=== PATIENT | male | born 1965 | race Caucasian/White ===

== ENCOUNTER 2017-04-09 12:40 | Outpatient (CLI) | payer OTHER ==
[2017-04-09 19:28] LABS: EOSINOPHILS # (AUTO) 0.2 10^3/uL (0.0-0.7); HGB - HEMOGLOBIN 14.5 g/dL (14.0-18.0); LYMPHOCYTES # (AUTO) 1.4 10^3/uL (1.5-3.5); MEAN PLATELET VOLUME 8.7 fL (7.4-11.4); MONOCYTES # (AUTO) 0.4 10^3/uL (0.0-1.0); NEUTROPHILS # (AUTO) 1.9 10^3/uL (1.5-6.6); NUCLEATED RED BLOOD CELLS AUTO 0.1 /100WBC
[2017-04-09 19:31] LABS: EOSINOPHILS % (AUTO) 5.7 %; HCT - HEMATOCRIT 44.1 % (42.0-52.0); LYMPHOCYTES % (AUTO) 35.4 %; MEAN CORPUSCULAR HEMOGLOBIN 30.1 pg (27.0-31.0); MEAN CORPUSCULAR HGB CONC 32.9 g/dL (32.0-36.0); MEAN CORPUSCULAR VOLUME 91.3 fL (80.0-94.0); MONOCYTES % (AUTO) 10.3 %; NEUTROPHILS % (AUTO) 47.6 %; RED BLOOD COUNT 4.83 10^6/uL (4.70-6.10); RED CELL DISTRIBUTION WIDTH 14.1 % (12.0-15.0); UNCORRECTED WHITE BLOOD COUNT 3.9 x10^3/uL; WHITE BLOOD COUNT 3.9 x10^3/uL (4.8-10.8)
[2017-04-09 19:37] LABS: ALBUMIN/GLOBULIN RATIO 1.3 (1.0-2.2); BILIRUBIN,TOTAL 0.5 mg/dL (0.2-1.0); BUN - BLOOD UREA NITROGEN 18 mg/dL (6-20); CALCIUM 9.1 mg/dL (8.5-10.3); CARBON DIOXIDE - CO2 30 mmol/L (21-32); CHLORIDE 104 mmol/L (101-111); GFR - MDRD 78 (>89); GLUCOSE 88 mg/dL (70-100); POTASSIUM 4.3 mmol/L (3.5-5.0); SODIUM 140 mmol/L (135-145); TOTAL PROTEIN 7.5 g/dL (6.7-8.2)
== END 2017-04-09 12:41 | disposition home or self-care (01) ==
LOC: LAB.WCP 12:40
PROVIDERS: ATTEND Family Medicine
DX: R59.1 Generalized enlarged lymph nodes (principal); R07.89 Other chest pain
CPT/HCPCS: 36415; 80053; 84484; 85025; 86140; 87389

== ENCOUNTER 2018-03-26 14:28 | Outpatient (CLI) | payer OTHER ==
[2018-03-26 19:14] LABS: BASOPHILS % (AUTO) 0.9 %; EOSINOPHILS # (AUTO) 0.2 10^3/uL (0.0-0.7); EOSINOPHILS % (AUTO) 4.7 %; HGB - HEMOGLOBIN 14.8 g/dL (14.0-18.0); LYMPHOCYTES # (AUTO) 1.7 10^3/uL (1.5-3.5); LYMPHOCYTES % (AUTO) 35.1 %; MEAN CORPUSCULAR HGB CONC 33.2 g/dL (32.0-36.0); MEAN CORPUSCULAR VOLUME 93.3 fL (80.0-94.0); MEAN PLATELET VOLUME 8.8 fL (7.4-11.4); MONOCYTES # (AUTO) 0.5 10^3/uL (0.0-1.0); MONOCYTES % (AUTO) 11.2 %; NEUTROPHILS # (AUTO) 2.3 10^3/uL (1.5-6.6); NEUTROPHILS % (AUTO) 48.1 %; PLT - PLATELET COUNT 198 10^3/uL (130-450); RED BLOOD COUNT 4.76 10^6/uL (4.70-6.10); RED CELL DISTRIBUTION WIDTH 13.5 % (12.0-15.0); WHITE BLOOD COUNT 4.9 x10^3/uL (4.8-10.8)
[2018-03-26 19:30] LABS: ALBUMIN 3.8 g/dL (3.2-5.5); ALBUMIN/GLOBULIN RATIO 1.2 (1.0-2.2); ALKALINE PHOSPHATASE 49 IU/L (42-121); ALT ALANINE AMINOTRANSFERASE 20 IU/L (10-60); AST ASPARTATE AMINOTRANSFERASE 21 IU/L (10-42); BILIRUBIN,TOTAL 0.7 mg/dL (0.2-1.0); BUN - BLOOD UREA NITROGEN 17 mg/dL (6-20); CALCIUM 8.8 mg/dL (8.5-10.3); CARBON DIOXIDE - CO2 26 mmol/L (21-32); CHLORIDE 102 mmol/L (101-111); CREATININE 0.9 mg/dL (0.6-1.2); GFR - MDRD 88 (>89); GLUCOSE 79 mg/dL (70-100); SODIUM 136 mmol/L (135-145)
[2018-03-26 19:31] LABS: CRP - C-REACTIVE PROTEIN < 1.0 mg/dL (0-1.0)
== END 2018-03-26 14:29 | disposition home or self-care (01) ==
LOC: LAB.WCP 14:28
PROVIDERS: ATTEND Family Medicine
DX: R51 Headache (principal)
CPT/HCPCS: 36415; 80053; 85025; 85651; 86140

== ENCOUNTER 2018-04-02 15:05 | Outpatient (CLI) | payer OTHER ==
--- NOTE | 2018-04-03 15:03 | MRI Report ---
Procedure Date: 04/02/2018 Accession Number: [id number] / [id number] Procedure: MRI - Brain W/O CPT Code: FULL RESULT: EXAM: MRI BRAIN WITHOUT CONTRAST EXAM DATE: 04/02/2018 03:55 PM. CLINICAL HISTORY: Headache for several weeks. Patient's father of brain cancer. Head injury in 2012 with orbital and posterior fossa fracture. COMPARISON: CT scan of the head 04/04/2013. TECHNIQUE: Multiplanar, multisequence T1-weighted and fluid-sensitive MR sequences of the brain were performed. Sequences optimized for routine evaluation. Other: None. IV Contrast: None. FINDINGS: Brain Volume: Normal for age. Parenchyma/Dura: No mass, acute infarct or hemorrhage. Normal valadez matter and white matter signal intensity is identified. Ventricles/Cisterns: The ventricles, sulci, and cisterns are unremarkable. Mild arcuate prominence of CSF is seen posterior to the cerebellar vermis and hemispheres. This may be secondary to magna cisterna magna versus arachnoid cyst. No underlying parenchymal abnormality is seen. Orbits: Symmetric and unremarkable. Sella Turcica: The pituitary gland, cavernous sinuses, suprasellar cistern and optic chiasm are unremarkable. IAC: Symmetric and unremarkable. Vasculature: Normal signal flow void is seen in the major arterial structures at the skull base. Sinuses: Mild mucosal thickening is seen posteriorly superiorly in the ethmoid sinuses and adjacent anterior sphenoid sinuses. Minimal mucosal thickening is seen inferiorly in the maxillary antra. The mastoid air cells are clear. Bones: No focal pathologic appearing marrow signal changes. Other: None. IMPRESSION: 1. Negative noncontrast MRI of the brain. No acute abnormality. No infarct, mass, or hemorrhage. RADIA
== END 2018-04-02 15:06 | disposition home or self-care (01) ==
LOC: DI 15:05
PROVIDERS: ATTEND Family Medicine
DX: R51 Headache (principal); Z80.8 Family history of malignant neoplasm of other organs or systems
CPT/HCPCS: 70551

== ENCOUNTER 2021-11-11 19:00 | Emergency (ER) | payer OTHER ==
[2021-11-11 19:22] VITALS: BP 134/66
[2021-11-11] MEDS: PROPARACAINE 0.5% OPHTH DROPS 15 ML EACHEYE STA (19:31)
--- NOTE | 2021-11-11 19:43 | ED Physician Documentation ---
PD HPI OPHTHO - Stated complaint Stated Complaint: RT EYE PAIN - Chief complaint Chief Complaint: Heent - History obtained from History obtained from: Patient - History of Present Illness Pain level max: 3 Pain level now: 2 Location: Right Quality / character: Aching Associated symptoms: Redness, Tearing, FB sensation. No: Photophobia, Double vision, Decreased vision, Loss of vision, Headache Contributing factors: No: Wears glasses, Wears contacts Similar symptoms before: Has not had sx before - Additional information Additional information: Patient is a 55-year-old male who complains of right eye pain. 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 No vision changes. Does have tearing. Nothing makes it better. Nothing makes it worse. Review of Systems Constitutional: denies: Fever GI: denies: Vomiting PD PAST MEDICAL HISTORY - Past Medical History Cardiovascular: None Respiratory: Asthma Endocrine/Autoimmune: None GI: None : None HEENT: None Psych: None Musculoskeletal: None Derm: Eczema - Past Surgical History Past Surgical History: No General: Colonoscopy - Present Medications Home Medications: Ambulatory Orders Medication Instructions Recorded Confirmed Albuterol Sulfate [Proventil Hfa 2 puffs INH Q6HR PRN 04/01/05/15/20 Inhaler] diphenhydrAMINE [Benadryl] 12.5 mg ORAL Q6HR PRN 05/15/20 05/15/20 Polymyxin B/Trimeth Ophth Drop 1 drops EACHEYE Q3H 7 Days #1 11/11/21 [Polytrim Ophth Drops] bottle - Allergies Allergies/Adverse Reactions: Allergies Allergy/AdvReac Type Severity Reaction Status Date / Time codeine Allergy Rash Verified 02/01/15 21:22 Penicillins Allergy Unknown Verified 11/11/21 19:23 - Social History Does the pt smoke?: No Smoking Status: Never smoker Does the pt drink ETOH?: No Does the pt have substance abuse?: No - Immunizations Immunizations are current?: Yes - POLST Patient has POLST: No PD ED PE NORMAL - Vitals Vital signs reviewed: Yes - General General: Alert and oriented X 3, No acute distress - HEENT HEENT: Moist mucous membranes, Other (Left eye is normal. Right eye reveals an injected conjunctiva. Fluorescein stain shows a corneal abrasion on the superior lateral aspect of the cornea. Eyelids everted. No foreign bodies.) - Neck Neck: Supple, no meningeal sign - Derm Derm: Warm and dry - Neuro Neuro: Alert and oriented X 3 Results - Vitals Vitals: Vital Signs - 24 hr 11/11/21 19:19 Temperature 36.3 C L Heart Rate 74 Respiratory 16 Rate Blood Pressure 134/66 H O2 Saturation 97 Oxygen O2 Source Room air PD MEDICAL DECISION MAKING - ED course Complexity details: considered differential, d/w patient ED course: 55-year-old male with a right eye corneal abrasion. We will place on Polytrim ophthalmic and have him follow-up with his doctor for further care. No retained foreign body. Patient counseled regarding signs and symptoms for which I believe and urgent re-evaluation would be necessary. Patient with good understanding of and agreement to plan and is comfortable going home at this time This document was made in part using voice recognition software. While efforts are made to proofread this document, sound alike and grammatical errors may occur. Departure - Departure Disposition: Home, Self Care Clinical Impression: Corneal abrasion Qualifiers: Encounter type: initial encounter Laterality: right Qualified Code(s): S05.01XA - Injury of conjunctiva and corneal abrasion without foreign body, right eye, initial encounter Condition: Good Instructions: ED Eye Injury Corneal Abrasion Follow-Up: Mary Stone DO [Primary Care Provider] - As Needed Prescriptions: Polymyxin B/Trimeth Ophth Drop [Polytrim Ophth Drops] 1 drops EACHEYE Q3H 7 Days #1 bottle Comments: Your medication was sent to [facility] in [place]. Please follow-up with your doctor as needed for further care. Return if you worsen. This should continue to improve over the next few days. Discharge Date/Time: 11/11/21 20:53
== END 2021-11-11 20:53 | disposition home or self-care (01) ==
LOC: ED 19:00
DX: S05.01XA Injury of conjunctiva and corneal abrasion without foreign body, right eye, initial encounter (principal); X58.XXXA Exposure to other specified factors, initial encounter; Y93.89 Activity, other specified
CPT/HCPCS: 99282; J3490

== ENCOUNTER 2023-12-16 15:28 | Emergency (ER) | payer OTHER ==
--- NOTE | 2023-12-16 16:58 | ED Physician Documentation ---
History of Present Illness - Stated complaint Stated Complaint: ALLERGIC REACTION - Chief complaint Chief Complaint: Allergic Rx - Additonal information Additional information: 58-year-old male with known history of allergy reaction to nuts. Patient said that he accidentally ate a cookie that had nuts in it today about an hour and a half ago. He is taking 50 mg of Benadryl at home which he does feel like it has alleviated a lot of his symptoms but he is having persistent ongoing facial swelling periorbital swelling and he did have a rash to his posterior thighs which she feels like has fully resolved he is not having EpiPen at home so he is not taking any epinephrine. He denies any shortness of breath at this point in time he does feel like he is having oral swelling as well. PD PAST MEDICAL HISTORY - Past Medical History Past Medical History: Yes Cardiovascular: None Respiratory: Asthma Neuro: None Endocrine/Autoimmune: None GI: None : None HEENT: None Psych: None Musculoskeletal: None Derm: Eczema - Past Surgical History Past Surgical History: No General: Colonoscopy - Present Medications Home Medications: Ambulatory Orders Medication Instructions Recorded Confirmed Albuterol Sulfate [Proventil Hfa 2 puffs INH Q6HR PRN 04/01/13 05/15/20 Inhaler] diphenhydrAMINE [Benadryl] 12.5 mg ORAL Q6HR PRN 05/15/20 05/15/20 Polymyxin B/Trimeth Ophth Drop 1 drops EACHEYE Q3H 7 Days #1 11/11/21 [Polytrim Ophth Drops] bottle EPINEPHrine [Epinephrine] 0.3 mg IJ ONCE PRN #2 each 12/16/23 dexAMETHasone [Decadron] 4 mg PO 0800 4 Days #4 tablet 12/16/23 - Allergies Allergies/Adverse Reactions: Allergies Allergy/AdvReac Type Severity Reaction Status Date / Time codeine Allergy Rash Verified 12/16/23 16:24 nut - unspecified Allergy Anaphylaxis Verified 12/16/23 16:30 Penicillins Allergy Unknown Verified 12/16/23 16:24 - Social History Does the pt smoke?: No Smoking Status: Never smoker Does the pt drink ETOH?: No Does the pt have substance abuse?: No - Immunizations Immunizations are current?: Yes - POLST Patient has POLST: No PD ED PE NORMAL - Vitals Vital signs reviewed: Yes - General General: Alert and oriented X 3, No acute distress, Well developed/nourished - HEENT HEENT: Pharynx benign, Other (Bilateral periorbital swelling) - Neck Neck: Other (Trachea midline) - Cardiac Cardiac: RRR, No murmur, No gallop, Strong equal pulses - Respiratory Respiratory: No respiratory distress, Clear bilaterally - Derm Derm: Normal color, Warm and dry, No rash, Other (flushed face) Results - Vitals Vitals: Vital Signs - 24 hr 12/16/23 12/16/23 12/16/23 16:24 17:00 17:30 Temperature 36.3 C L Heart Rate 62 54 L 61 Respiratory 20 16 16 Rate Blood Pressure 123/82 H 134/74 H O2 Saturation 99 100 100 12/16/23 12/16/23 18:00 18:39 Temperature Heart Rate 70 71 Respiratory 19 21 Rate Blood Pressure 125/63 124/71 O2 Saturation 100 98 Oxygen O2 Source Room air PD Medical Decision Making - ED course ED course: This patient presents with symptoms consistent with acute hypersensitivity reaction, likely acute allergic reaction.He does not have any obvious rashes no GI symptoms no cardiovascular symptoms no hypertension he does have angioedema and he does have a known exposure to nuts with a known nut allergy. He does not have any evidence of airway compromise or shock at this time. Because of his periorbital edema and patient saying that he was feeling some oral swelling we decided to go ahead and give intramuscular epinephrine. He was also given dexamethasone, famotidine, Zyrtec and had already taken 50 mg of Benadryl at home. He was given a prescription of an EpiPen to his preferred pharmacy and given an additional 4 days of steroids to help with the inflammation and told to continue with the Zyrtec daily for about a week. He was also given contact information to reach out to local driver. Patient told to follow-up with primary care provider outpatient within about the ER visit he had he was given strict ER return precautions and taught about possible rebound anaphylaxis. He was offered to continue to be monitored for more hours but patient ultimately opted this time to go home and was able to provide teach back when to report back to the emergency department Departure - Departure Disposition: 01 Home, Self Care Clinical Impression: Allergic reaction Qualifiers: Encounter type: initial encounter Qualified Code(s): T78.40XA - Allergy, unspecified, initial encounter Instructions: ED Allergic Reaction General Other Prescriptions: dexAMETHasone [Decadron] 4 mg PO 0800 4 Days #4 tablet EPINEPHrine [Epinephrine] 0.3 mg IJ ONCE PRN #2 each PRN Reason: Anaphylaxis Comments: Thank you for trusting us with your care as we discussed I would take Zyrtec daily for the next week or so I have also sent a prescription of dexamethasone that I want you to take once a day for the next 4 days. I have sent a prescription also for EpiPen's to [facility] in [place] please pick these up worsening this evening if you are able to. As we discussed it is very rare but sometimes there is something called rebound anaphylaxis that can cause worsening shortness of breath, chest pain, worsening allergic reaction symptoms if that happens please come back to the emergency department immediately give yourself an EpiPen. There is an local driver in [place] their location is called [place] [facility] their phone number is [phone] I am not sure if they need a referral or not but if so would contact your primary care provider to ask for referral for them. Forms: PCP List Discharge Date/Time: 12/16/23 18:46
[2023-12-16] MEDS: EPINEPHrine 1 MG/ML AMP IM STA (17:17)
[2023-12-16] MEDS: FAMOTIDINE 20 MG/2 ML VIAL IVP STA (17:17)
[2023-12-16] MEDS: CETIRIZINE 10 MG TABLET PO STA (17:17)
[2023-12-16] MEDS: DEXAMETHASONE 10 MG/ML VIAL IVP STA (17:17)
[2023-12-16 18:42] VITALS: BP 124/71; O2SAT 98
== END 2023-12-16 18:46 | disposition home or self-care (01) ==
LOC: ED 15:28
DX: T78.1XXA Other adverse food reactions, not elsewhere classified, initial encounter (principal); Z91.018 Allergy to other foods; Z79.899 Other long term (current) drug therapy
CPT/HCPCS: 36415; 96374; 99283; 99284; A9270